=== PATIENT | female | born 1960 | race Caucasian/White ===

== ENCOUNTER → 2020-09-04 | Outpatient (CLI) | payer OTHER | LOC: RAD 10:18 | PROVIDERS: ATTEND Internal Medicine | DX: J44.9 Chronic obstructive pulmonary disease, unspecified (principal) ==

== ENCOUNTER → 2020-09-11 | Outpatient (CLI) | payer OTHER ==
--- NOTE | 2020-09-11 12:16 | 2DMMODE ---
[facility] [place] [address] 2 D/M-MODE ECHOCARDIOGRAM Name: RUSSELL ABRAHAM Room #: REG [facility]#: [id number] Admission: 09/11/20 Attend Phys: Randy Hargrove MD Discharge: Date of : 62 Report #: [id number] THIS REPORT FOR: cc: Marleen Kitchen Christine L. DO Santiago, Patrick MD [facility] ~ APPROVED REPORT Study performed: 09/11/2020 10:44:22 EXAM: Comprehensive 2D, Doppler, and color-flow Echocardiogram Patient Location: Out-Patient Room #: 2 Status: routine BSA: 2.07 HR: 88 bpm BP: 130/80 mmHg Rhythm: NSR Other Information Study Quality: Technically Difficult Technically limited study due to body habitus, lung disease, inability to position patient. Indications COPD Dyspnea Morbid Obesity 2D Dimensions IVSd: 10.91 (7-11mm) LVOT Diam: 16.58 (18-24mm) LVDd: 46.40 mm PWd: 10.86 (7-11mm) LVDs: 26.09 (25-40mm) Left Atrium: 27.72 (27-40mm) Aortic Root: 23.46 mm IVC: 22.00 mm Aortic Valve AoV Peak Mir.: 1.58 m/s AO Peak Gr.: 9.95 mmHg LVOT Max P.11 mmHg LVOT Max V: 1.01 m/s SHABANA Vmax: 1.39 cm2 Mitral Valve [facility] [address] [place] [address] 2 D/M-MODE ECHOCARDIOGRAM Name: RUSSELL ABRAHAM Room #: REG [facility]#: [id number] Admission: 09/11/20 Attend Phys: Randy Hargrove, Discharge: Date of : 62 Report #: [id number] E/A Ratio: 1.5 MV Decel. Time: 295.88 ms MV E Max Mir.: 1.10 m/s MV A Mir.: 0.73 m/s MV PHT: 85.81 ms IVRT: 73.82 ms Pulmonary Valve PV Peak Mir.: 1.18 m/s PV Peak Gr.: 5.56 mmHg Tricuspid Valve TR Peak Mir.: 3.45 m/s TR Peak Gr.: 47.66 mmHg PA Pressure: 58.00 mmHg Left Ventricle The left ventricle is normal size. There is normal LV segmental wall motion. There is normal left ventricular wall thickness. Left ventricular systolic function is normal. The left ventricular ejection fraction is within the normal range. LVEF is 60-65%. The left ventricular diastolic function is normal. Right Ventricle The right ventricle is normal size. The right ventricular systolic function is normal. Atria The left atrium size is normal. The right atrium size is normal. Aortic Valve The aortic valve is normal in structure. No aortic regurgitation is present. There is no aortic valvular stenosis. Mitral Valve The mitral valve is normal in structure. There is no mitral valve regurgitation noted. No evidence of mitral valve stenosis. Tricuspid Valve The tricuspid valve is normal in structure. There is mild tricuspid regurgitation. Estimated PAP 58 mmHg. There is moderate pulmonary hypertension. Pulmonic Valve The pulmonary valve is normal in structure. There is no pulmonic valvular regurgitation. [facility] [address] [place] [address] 2 D/M-MODE ECHOCARDIOGRAM Name: RUSSELL ABRAHAM GEORGETTE Room #: REG [facility]#: [id number] Admission: 09/11/20 Attend Phys: Randy Hargrove, Discharge: Date of : 62 Report #: [id number] Great Vessels The aortic root is normal in size. The ascending aorta is normal in size. IVC is dilated and collapses <50% with inspiration. Pericardium Trace pericardial effusion. <Conclusion> Normal left ventricular size/wall thickness Ejection fraction 60% Normal right ventricular size/function Normal atrial size Color-flow Doppler study was performed of the aortic/mitral/tricuspid/pulmonary valve Normal aortic/mitral valve structure and function Mild tricuspid valve insufficiency Moderate pulmonary hypertension PA pressure estimated 58 mmHg Normal aortic root size Trace pericardial effusion <ELECTRONICALLY SIGNED> By: Jared Hilario MD, [facility] 09/11/20 1215 14 Jared Hilario MD, FACC /INF
== END ==
LOC: CV 09:45
PROVIDERS: ATTEND Internal Medicine
DX: I07.1 Rheumatic tricuspid insufficiency (principal); I27.20 Pulmonary hypertension, unspecified; J44.9 Chronic obstructive pulmonary disease, unspecified; G47.33 Obstructive sleep apnea (adult) (pediatric)

== ENCOUNTER → 2020-09-11 | Outpatient (CLI) | payer OTHER | LOC: CAT 11:05 | PROVIDERS: ATTEND Internal Medicine | DX: Z12.2 Encounter for screening for malignant neoplasm of respiratory organs (principal); J98.11 Atelectasis; J90 Pleural effusion, not elsewhere classified; R91.8 Other nonspecific abnormal finding of lung field; I31.3 Pericardial effusion (noninflammatory); J98.4 Other disorders of lung; I70.0 Atherosclerosis of aorta; M25.78 Osteophyte, vertebrae; M41.85 Other forms of scoliosis, thoracolumbar region; M48.04 Spinal stenosis, thoracic region; Z87.891 Personal history of nicotine dependence ==